=== PATIENT | male | born 1965 | race Caucasian/White ===

== ENCOUNTER 2016-06-07 11:16 | Day surgery (SDC) | payer BC ==
[~2016-06-07] VITALS: Ht 180.3 cm; Wt 122.7 kg
[~2016-06-07 11:16] MED LIST: AMOXICILLIN 8751 TAB; ASPIRIN 81M81 MG/TA2 PO; ATROVENT I0.2 MG/1 M IH; BACTRIM 400 MG-1 TAB PO; BACTRIM DS 8001 TAB PO; BENADRYL25 M2 PO; BROVANA15 MCG/2 M IH; COMBIRESP IH; COMBIVENT INH14.7 GM IH; CRESTOR 10MG10 MG PO; DALIRESP500 MCG PO; DIFLUCAN 100MG100 MG PO; DIFLUCAN200 MG PO; DOXYCYCLINE 10100 MG; GENTAMICIN I40 MG/ML IH; IPRATROPIUM BROM3 M1 IH; KLOR-CON 1010 MEQ PO; KLOR-CON M2020 MEQ PO; LANTUS100 U/ML; LANTUS100 U/ML SC; LANTUS100 U/ML SQ; LASIX 20MG TABL20 MG PO; LEVAQUIN 5500 MG/TA1 PO; LEVAQUIN 750MG750 M1 PO; LOTRISONE CREAM15 GM TP; LOW DOSE ASPIRI81 MG PO; NEURONTIN300 MG/CAP PO; NEURONTIN600 MG/TAB PO; NITROSTAT0.4 MG/TAB SL; NORVASC 10MG10 MG PO; NOVOLOG 100U100 U/M1 SC; NOVOLOG 100U100 U/M1 SQ; PERCOCET 325 MG1 TA2 PO; PERFOROMIS20 MCG/2 M IH; POTASSIUM CITRA1 GRA; PREDNISONE 5MG5 MG PO; PREDNISONE10 MG PO; PREDNISONE20 MG PO; PRIL40 PO; PRINIVIL10 MG PO; PULMICORT R1 MG/2 ML IH; PULMICORT0.5 MG/2 M IH; PULMICORT90 MCG/Act IH; REPREXAIN PO; RT ALBUTER2.5 MG/0.5 IH; THEO-24400 MG PO; THEO-DUR 3300 MG/TAB PO; THEOPHYLLINE E100 MG PO; TYLENOL 325MG325 MG PO; UROCIT-K 1010 MEQ PO; UROCIT-K 5540 MG/TAB PO; VICOPROFEN 7.51 TAB PO; ZESTRIL 10MG10 MG PO; ZESTRIL 5MG5 MG PO; ZETIA 10MG TAB10 MG PO; ZITHROMAX 250M250 MG PO; ZOFRAN ODT4 MG PO; ZOHYDRO; ZYLOPRIM 100MG100 MG PO; [UNRECOGNIZED DRUG - OTHER]
[2016-06-07 12:18] VITALS: BP 109/81; PULSE 109; TEMP 97.6
[2016-06-07 13:30] VITALS: BP 93/58; PULSE 90; TEMP 97.7
[2016-06-07 13:45] VITALS: BP 102/57; PULSE 92
[2016-06-07 14:00] VITALS: BP 107/65; PULSE 87
[2016-06-07] MEDS ORDERED: ZITHROMAX 250M250 MG PO (14:07)
[2016-06-07 14:15] VITALS: BP 114/71; PULSE 88
== END 2016-06-07 15:25 | disposition home or self-care (01) ==
LOC: SDCO 11:16
DX: J40 Bronchitis, not specified as acute or chronic (principal); J04.10 Acute tracheitis without obstruction; R05 Cough; R06.02 Shortness of breath; R09.89 Other specified symptoms and signs involving the circulatory and respiratory systems; J44.1 Chronic obstructive pulmonary disease with (acute) exacerbation; E11.9 Type 2 diabetes mellitus without complications; G47.33 Obstructive sleep apnea (adult) (pediatric); Z79.899 Other long term (current) drug therapy; Z79.4 Long term (current) use of insulin; Z79.52 Long term (current) use of systemic steroids; Z79.82 Long term (current) use of aspirin
CPT/HCPCS: J2704; J7030